=== PATIENT | female | born 2000 | race African-American/Black ===

== ENCOUNTER 2025-04-07 03:03 | Emergency (ER) | payer SELFPAY ==
[~2025-04-07] VITALS: Ht 162.6 cm; Wt 66.0 kg
[2025-04-07] MEDS: ALBUTEROL (0.083%) 2.5MG/3ML NEB HHN ONE (04:33)
[2025-04-07 04:35] VITALS: PULSE 97; RESP 20; O2SAT 98
[2025-04-07] MEDS: ACETAMINOPHEN 325MG TABLET PO ONE (04:56)
[2025-04-07] MEDS: ACETAMINOPHEN 325MG TABLET PO NR (04:59)
[2025-04-07] MEDS ORDERED: ACET-2708 MT (05:47)
[2025-04-07] MEDS ORDERED: ALBU90AE INH (05:47)
[2025-04-07] MEDS ORDERED: METH4TAB95 MT (05:47)
[2025-04-07 06:39] VITALS: BP 104/63; PULSE 79; RESP 12; TEMP 36.7; O2SAT 99
[2025-04-07 07:13] LABS: HCG SCREEN NEGATIVE
[2025-04-07 08:12] LABS: INFLUENZA TYPE A Presumptive Negative (Pres. Neg.); INFLUENZA TYPE B Presumptive Negative (Pres. Neg.)
== END 2025-04-07 06:48 | disposition home or self-care (01) ==
LOC: ER 03:03
DX: B34.9 Viral infection, unspecified (principal); J45.909 Unspecified asthma, uncomplicated; Z79.899 Other long term (current) drug therapy
CPT/HCPCS: 84703; 87804 ×2; 71045; 94640; 99284; Z7610 ×3; 94070